=== PATIENT | male | born 1990 | race Hispanic/Latino ===

== ENCOUNTER 2022-06-20 11:49 | Emergency (ER) | payer SELFPAY ==
[2022-06-20] MEDS ORDERED: Iopamidol 370 76% 100 ML VIAL ONE (12:37)
[2022-06-20 13:24] LABS: #Basophils 0.1 10x3/uL (0.0-0.2); #Eosinphils 0.2 10x3/uL (0.0-0.5); #Monocytes 0.7 10x3/uL (0.0-1.1); #Neutrophils 8.9 10x3/uL (1.5-8.4); %Basophils 0.5 % (0.0-2.0); %Eosinophils 1.4 % (0.0-6.0); %Lymphocytes 18.5 % (18.0-47.0); %Monocytes 5.6 % (0.0-10.0); %Neutrophils 73.6 % (40.0-75.0); Hemoglobin 19.2 g/dL (13.5-17.5); Mean Corpuscular HGB CONC 36.4 g/dL (32.0-36.0); Mean Corpuscular Hemoglobin 32.5 pg (27.0-33.0); Mean Corpuscular Volume 89.2 fl (81.2-95.1); Mean Platelet Volume 9.9 fl (7.4-10.4); Platelet Count 257 10x3/uL (150-450); RBC Distribution Width 12.6 % (11.5-14.5); Red Blood Cell (RBC) Count 5.91 10x6/uL (4.32-5.72); White Blood Cell (WBC) Count 12.1 10x3/uL (3.5-10.5)
[2022-06-20] MEDS ORDERED: Ondansetron PF 4 MG/2 ML Vial ONE (13:25)
[2022-06-20] MEDS ORDERED: Morphine 4 MG/ML VIAL ONE (13:25)
[2022-06-20 13:29] LABS: INR-International Normal Ratio 1.1; PTT 27.1 sec (22.0-33.0); Prothrombin Time 11.4 sec (9.5-12.1)
[2022-06-20 13:33] LABS: ALT (SGPT) 82 U/L (8-55); AST (SGOT) 43 U/L (5-34); Albumin 4.1 g/dL (3.5-5.0); Alkaline Phosphatase 122 U/L (40-110); Anion Gap 16 mmol/L (10-20); BUN (Urea Nitrogen) 19 mg/dL (8.9-20.6); Bilirubin, Total 0.8 mg/dL (0.2-1.2); Calc. Creatinine Clearance 0 mL/min (70-130); Calcium 9.1 mg/dL (7.8-10.44); Carbon Dioxide 19 mmol/L (22-29); Chloride 107 mmol/L (98-107); Estimated GFR 120; Glucose 133 mg/dL (70-105); Potassium 3.9 mmol/L (3.5-5.1); Protein, Total 8.1 g/dL (6.0-8.3); Sodium 138 mmol/L (136-145)
[2022-06-20] MEDS ORDERED: Diazepam 5 MG TAB ONE (17:22)
[2022-06-20] MEDS ORDERED: Acetaminophen/Codeine 30-300mg Tablet ONE (17:26)
== END 2022-06-20 18:34 | disposition home or self-care (01) ==
LOC: CSHERS 11:49
DX: S80.01XA Contusion of right knee, initial encounter (principal); W01.0XXA Fall on same level from slipping, tripping and stumbling without subsequent striking against object, initial encounter
CPT/HCPCS: 36415; 71275; 80053; 85025; 85610; 85730; 86140; 93005; 96361; 96374; 96375; J2270; J2405; Q9967

== ENCOUNTER 2022-08-29 15:05 | Outpatient (CLI) | payer OTHER | END 2022-08-29 15:06 | disposition home or self-care (01) | LOC: CSHMRI 15:05 | PROVIDERS: ATTEND Family Medicine | DX: S83.104A Unspecified dislocation of right knee, initial encounter (principal); S86.811A Strain of other muscle(s) and tendon(s) at lower leg level, right leg, initial encounter; M22.8X1 Other disorders of patella, right knee; M22.2X1 Patellofemoral disorders, right knee ==